=== PATIENT | female | born 1995 | race Caucasian/White ===

== ENCOUNTER 2025-03-04 07:41 | Outpatient (REF) | payer OTHER, SELFPAY ==
[2025-03-04 09:21] LABS: Folate 13.7 ng/mL (> or = 4.0); Vitamin B12 1701 pg/mL (200-900)
== END 2025-03-04 07:42 | disposition home or self-care (01) ==
LOC: HO.LAB 07:41
PROVIDERS: PCP Nurse Practitioner Family; Visit Provider Nurse Practitioner Family
DX: Z01.84 Encounter for antibody response examination (principal); R53.82 Chronic fatigue, unspecified; I10 Essential (primary) hypertension; R53.1 Weakness; Z13.21 Encounter for screening for nutritional disorder
CPT/HCPCS: 36415; 82088; 82306; 82533; 82550; 82607; 82746; 83921; 84244; 86376